=== PATIENT | male | born 2000 | race Caucasian/White ===

== ENCOUNTER → 2024-05-16 13:40 | Outpatient (REF) | payer BC, SELFPAY | LOC: RCS 13:40 | PROVIDERS: ATTENDING PHYSICIAN Nurse Practitioner Family | DX: Z87.898 Personal history of other specified conditions (principal) | CPT/HCPCS: 93306 ==

== ENCOUNTER → 2024-07-21 08:25 | Outpatient (REF) | payer BC, SELFPAY | LOC: HWRAD 08:25 | PROVIDERS: ATTENDING PHYSICIAN Internal Medicine; FAMILY PHYSICIAN Physician Assistant Medical | DX: I10 Essential (primary) hypertension (principal) | CPT/HCPCS: 93975 ==

== ENCOUNTER 2024-08-23 23:11 | Emergency (ER) | payer SELFPAY ==
[2024-08-23 23:15] VITALS: BP 166/94
[2024-08-23 23:48] VITALS: BMI 24.5
[2024-08-24] MEDS: ZOFRAN ODT (ORALLY DISINTEGRATING) 4 MG PO (00:14)
[2024-08-24] MEDS: TYLENOL 1000 MG PO (00:15)
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
[2024-08-24 01:15] VITALS: BP 155/89
== END 2024-08-24 02:11 | disposition home or self-care (01) ==
LOC: EMR 23:11
PROVIDERS: EMERGENCY PHYSICIAN Student in an Organized Health Care Education/Training Program; FAMILY PHYSICIAN Family Medicine
DX: S09.90XA Unspecified injury of head, initial encounter (principal); F07.81 Postconcussional syndrome; I10 Essential (primary) hypertension; W22.09XA Striking against other stationary object, initial encounter; Y93.89 Activity, other specified; Y99.0 Civilian activity done for income or pay
CPT/HCPCS: 96374; 99284; 70450